=== PATIENT | female | born 1940 | race Caucasian/White ===

== ENCOUNTER → 2019-08-22 | Outpatient (CLI) | payer MEDICARE | END | disposition home or self-care (01) | LOC: CFH 10:16 | PROVIDERS: ATTEND Nurse Practitioner | DX: N20.0 Calculus of kidney (principal); D17.71 Benign lipomatous neoplasm of kidney; J84.10 Pulmonary fibrosis, unspecified | CPT/HCPCS: 74176 ==

== ENCOUNTER → 2019-09-15 | Outpatient (CLI) | payer MEDICARE ==
[~2019-09-15] MED LIST: ALBU90AE INH; ASCO250T2 PO; ASPI-496 PO; BIOT25005 PO; CALC1CAP8 PO; DOCU-131 PO; ENZY1CAP PO; FEXO1TAB29 PO; GLUT500T3 PO; HYDR-826 PO; HYDR28OI3 TP; LACT1CAP35 PO; ONDA4TAB13 SL; PRAS1TAB2 PO; PROM25TA10 PO; SIME180C4 PO; TIOT18CA INH; TURM500C4 PO; WHEA1POW8 PO; [UNRECOGNIZED DRUG - OTHER] PO; ashwagandha PO; magnesium PO; vitamin b-6 PO; vitamin k PO
== END | disposition home or self-care (01) ==
LOC: STAR 13:03
PROVIDERS: ATTEND Surgery
DX: Z01.818 Encounter for other preprocedural examination (principal); K82.8 Other specified diseases of gallbladder
CPT/HCPCS: 93005

== ENCOUNTER 2019-09-23 06:48 | Day surgery (SDC) | payer MEDICARE ==
[~2019-09-23] VITALS: Ht 157.5 cm; Wt 43.3 kg
[2019-09-23] MEDS ORDERED: LACTATED RINGERS 1,000 ML IV SCH (07:14)
[2019-09-23] MEDS ORDERED: GABAPENTIN 300 MG CAPSULE PO ONE (07:30)
[2019-09-23] MEDS ORDERED: ACETAMINOPHEN 500 MG TABLET PO ONE (07:30)
[2019-09-23] MEDS ORDERED: LIDOCAINE-MPF 1%, 2ML INFIL ONE (07:30)
[2019-09-23] MEDS ORDERED: BUPIVACAINE/PF 0.5% ONE (09:09)
[2019-09-23] MEDS ORDERED: EPINEPHRINE 1 MG/ML, 1ML ONE (09:09)
[2019-09-23] MEDS ORDERED: FENTANYL PF 250 MCG/5ML ONE (09:21)
[2019-09-23] MEDS ORDERED: CEFOTETAN PMX 2GM/50ML 50 ML ONE (09:23)
[2019-09-23] MEDS ORDERED: INDOCYANINE GREEN 25 MG VIAL ONE (09:23)
[2019-09-23] MEDS ORDERED: MEPERIDINE/PF 25MG/ML,1ML IVPush PRN (09:30)
[2019-09-23] MEDS ORDERED: ALBUTEROL SULFATE 2.5 MG/3 ML NPPB PRN (09:30)
[2019-09-23] MEDS ORDERED: OXYcodone 5 MG/5 ML ORAL.SOL UDC PO PRN ×2 (09:30→11:00)
[2019-09-23] MEDS ORDERED: PROMETHAZINE 25 MG/ML, 1ML IV PRN (09:30)
[2019-09-23] MEDS ORDERED: HYDROmorphone 2 MG/ML, 1ML IVPush PRN (09:30)
[2019-09-23] MEDS ORDERED: MORPHINE SULFATE 4 MG/ML, 1ML IVPush PRN (09:30)
[2019-09-23] MEDS ORDERED: INDOCYANINE GREEN 25 MG VIAL IV ONE (09:30)
[2019-09-23] MEDS ORDERED: LABETALOL 5MG/ML, 20ML IV PRN (09:30)
[2019-09-23] MEDS ORDERED: HALOPERIDOL 5 MG/ML IV PRN (09:30)
[2019-09-23] MEDS ORDERED: hydrALAzine 20 MG/ML, 1ML IV PRN (09:30)
[2019-09-23] MEDS ORDERED: FENTANYL PF 100 MCG/2ML IV PRN (09:30)
[2019-09-23] MEDS ORDERED: PROPOFOL 10 MG/ML, 20ML ONE (10:06)
[2019-09-23] MEDS ORDERED: GLYCOPYRROLATE 0.2MG/1ML, 5ML ONE (10:06)
[2019-09-23] MEDS ORDERED: NEOSTIGMINE 1 MG/ML, 10ML ONE (10:06)
[2019-09-23] MEDS ORDERED: ROCURONIUM 10MG/ML,5ML ONE (10:06)
[2019-09-23] MEDS ORDERED: DEXAMETHASONE 4 MG/ML, 1ML ONE (10:06)
[2019-09-23] MEDS ORDERED: ONDANSETRON 2MG/ML, 2ML ONE (10:06)
[2019-09-23] MEDS ORDERED: hydrALAzine 20 MG/ML, 1ML ONE (10:54)
[2019-09-23] MEDS ORDERED: DIPHENHYDRAMINE 50 MG/ML, 1ML IVPush PRN (11:00)
[2019-09-23] MEDS ORDERED: IBUPROFEN 600 MG TABLET PO SCH (11:00)
[2019-09-23] MEDS ORDERED: MORPHINE SULFATE 4 MG/ML, 1ML ONE (11:14)
[2019-09-23] MEDS ORDERED: PROMETHAZINE 25 MG/ML, 1ML ONE (11:18)
== END 2019-09-23 15:35 | disposition home or self-care (01) ==
LOC: OUT 06:48
PROVIDERS: ATTEND Surgery
DX: K81.1 Chronic cholecystitis (principal); K82.8 Other specified diseases of gallbladder; J44.9 Chronic obstructive pulmonary disease, unspecified; Z79.899 Other long term (current) drug therapy; Z79.82 Long term (current) use of aspirin; Z98.890 Other specified postprocedural states
CPT/HCPCS: 47562; 88304; J0171; J0360; J1100; J2270; J2405; J2550; J2704; J2710; J3010; J3490; J7120

== ENCOUNTER 2021-02-09 17:50 | Observation (INO) | payer MEDICARE ==
[~2021-02-09] VITALS: Ht 157.5 cm; Wt 44.7 kg
[~2021-02-09 17:50] MED LIST changes: +ASCO250T12 PO; -ASCO250T2 PO
[2021-02-09 19:45] VITALS: BP 151/90
[2021-02-09] MEDS ORDERED: MELO15TA24 PO (21:09)
[2021-02-09] MEDS ORDERED: OMEP20CA20 PO (21:09)
[2021-02-09] MEDS ORDERED: ACETAMINOPHEN 325 MG TABLET PO PRN (22:30)
[2021-02-09] MEDS ORDERED: BACLOFEN 10 MG TABLET PO PRN (22:30)
[2021-02-09] MEDS ORDERED: GUAIFENESIN/DM 200-20MG, 10ML UDC PO PRN (22:30)
[2021-02-09] MEDS ORDERED: DOCUSATE 100 MG CAPSULE PO PRN (22:30)
[2021-02-09] MEDS ORDERED: ONDANSETRON 2MG/ML, 2ML IVPush PRN (22:30)
[2021-02-09] MEDS ORDERED: ENALAPRILAT 1.25 MG/ML, 2ML IVPush PRN (22:30)
[2021-02-09] MEDS ORDERED: NITROGLYCERIN 0.4 MG/SPRAY SL PRN (22:30)
[2021-02-09] MEDS ORDERED: ENOXAPARIN 40 MG/0.4 ML SQ SCH (22:30)
[2021-02-09] MEDS ORDERED: MELOXICAM 15 MG TABLET PO SCH (22:30)
[2021-02-09] MEDS ORDERED: SODIUM CHLORIDE 0.9% 1,000 ML IV SCH (22:30)
[2021-02-09] MEDS ORDERED: NITROGLYCERIN 0.4 MG BOTTLE (25 TABS) SL PRN (22:30)
[2021-02-09] MEDS: DOXYCYCLINE 50MG CAPSULE PO SCH (23:49)
[2021-02-10 00:03] LABS: TROPONIN I < 0.015 ng/mL (0.000-0.045)
[2021-02-10 03:15] VITALS: BP 128/80
[2021-02-10 04:51] LABS: BASOPHILS % (AUTO) 1 % (0-1); EOSINOPHILS % (AUTO) 2 % (1-7); LYMPHOCYTES % (AUTO) 19 % (22-44); MEAN CORPUSCULAR HEMOGLOBIN 30.7 pg (27.0-34.8); MEAN CORPUSCULAR HGB CONC 33.9 g/dL (32.4-35.8); MONOCYTES % (AUTO) 18 % (2-9); NEUTROPHILS % (AUTO) 60 % (42-75); PLATELET COUNT 268 x10^3/uL (130-400); RED CELL DISTRIBUTION WIDTH 13.5 % (9.6-15.2)
[2021-02-10 05:07] LABS: CHLORIDE 102 mmol/L (98-107)
[2021-02-10 05:27] LABS: ANION GAP 5 mmol/L (5-15); CALCIUM 8.1 mg/dL (8.5-10.1); CREATININE 0.79 mg/dL (0.55-1.02); TROPONIN I < 0.015 ng/mL (0.000-0.045)
[2021-02-10 06:42] VITALS: BP 155/87
[2021-02-10] MEDS ORDERED: OMEPRAZOLE 20 MG CAPSULE.DR PO SCH (07:00)
[2021-02-10] MEDS ORDERED: REGADENOSON 0.4 MG/5 ML SYRINGE ONE (08:31)
[2021-02-10] MEDS: DOXYCYCLINE 50MG CAPSULE PO SCH (08:35)
[2021-02-10] MEDS ORDERED: MULTIVITAMIN 1 TABLET PO SCH (09:00)
[2021-02-10 13:29] VITALS: BP 130/84
[2021-02-10] MEDS ORDERED: ONDANSETRON ODT 4 MG ONE (15:32)
== END 2021-02-10 15:51 | disposition home or self-care (01) ==
LOC: INTOOBSV 19:49 → 5SO 19:49
PROVIDERS: ADMIT Internal Medicine; ATTEND Hospitalist
DX: R07.89 Other chest pain (principal); J44.1 Chronic obstructive pulmonary disease with (acute) exacerbation; F41.9 Anxiety disorder, unspecified; M06.9 Rheumatoid arthritis, unspecified; M85.80 Other specified disorders of bone density and structure, unspecified site; E43 Unspecified severe protein-calorie malnutrition; E87.1 Hypo-osmolality and hyponatremia; E87.8 Other disorders of electrolyte and fluid balance, not elsewhere classified; N17.9 Acute kidney failure, unspecified; E87.6 Hypokalemia; M81.0 Age-related osteoporosis without current pathological fracture; Z79.82 Long term (current) use of aspirin; Z79.899 Other long term (current) drug therapy; Z99.81 Dependence on supplemental oxygen
CPT/HCPCS: 36415; 71045; 78452; 80048; 83735; 84100; 84443; 84484; 85025; 93005; 93017; 96360; 96361; 97162; A9502; G0378; J2785; J7030